=== PATIENT | male | born 1940 | race Caucasian/White ===

== ENCOUNTER → 2016-07-17 | Outpatient (REF) | payer MEDICARE, OTHER ==
[~2016-07-17] MED LIST: CAPT100T2 PO; COUM1TAB17 PO; FISH1000 PO; LIPI20TA PO; LISI40TAB PO; PACE0.05 PO; WARF-18 PO; WARF-23 PO
[2016-07-17 17:14] LABS: INR 2.03
== END ==
LOC: M LABDRAWC 16:18
PROVIDERS: ATTEND Nurse Practitioner Family
DX: I48.0 Paroxysmal atrial fibrillation (principal)

== ENCOUNTER → 2016-08-20 | Outpatient (REF) | payer MEDICARE, OTHER ==
[2016-08-20 12:20] LABS: INR 2.22
== END ==
LOC: M LABDRAWC 11:36
PROVIDERS: ATTEND Nurse Practitioner Family
DX: I48.0 Paroxysmal atrial fibrillation (principal)

== ENCOUNTER → 2016-09-20 | Outpatient (REF) | payer MEDICARE, OTHER ==
[2016-09-20 17:52] LABS: INR 2.42
== END ==
LOC: M LABDRAWC 16:55
PROVIDERS: ATTEND Physician Assistant
DX: I48.0 Paroxysmal atrial fibrillation (principal)

== ENCOUNTER → 2016-10-22 | Outpatient (REF) | payer MEDICARE, OTHER ==
[2016-10-22 17:36] LABS: INR 2.36
== END ==
LOC: M LABDRAWC 17:00
PROVIDERS: ATTEND Nurse Practitioner Family
DX: I48.0 Paroxysmal atrial fibrillation (principal)

== ENCOUNTER → 2016-11-21 | Outpatient (REF) | payer MEDICARE, OTHER ==
[2016-11-21 19:28] LABS: INR 2.73
== END ==
LOC: M LABDRAWC 17:05
PROVIDERS: ATTEND Nurse Practitioner Family
DX: I48.0 Paroxysmal atrial fibrillation (principal)

== ENCOUNTER → 2016-11-30 | Outpatient (REF) | payer MEDICARE, OTHER ==
[2016-11-30 13:41] LABS: PERCENT SATURATION 35.3 % (19.7-37.4)
== END ==
LOC: M LAB REF 12:52
PROVIDERS: ATTEND Internal Medicine Nephrology
DX: D64.9 Anemia, unspecified (principal)

== ENCOUNTER → 2016-12-07 | Outpatient (CLI) | payer MEDICARE, OTHER ==
--- NOTE | 2016-12-07 11:20 | REP ---
Chest two views HISTORY: Atrial fibrillation Comparison: 08/29/2015 The lungs are clear. The heart is upper limits of normal in size. The pulmonary vasculature is normal in appearance. Degenerative change is present in the thoracic spine. A cardiac pacemaker is present. IMPRESSION: No acute disease.
[2016-12-07 18:12] LABS: ALBUMIN 3.4 GM/DL (3.2-5.2); ALBUMIN/GLOBULIN RATIO 0.76 (1.00-1.93); BILIRUBIN,DIRECT 0.2 MG/DL (0.0-0.2); BILIRUBIN,TOTAL 0.6 MG/DL (0.2-1.0); TOTAL PROTEIN 7.9 GM/DL (6.4-8.2)
== END ==
LOC: M CLY 10:19
PROVIDERS: ATTEND Physician Assistant
DX: I48.0 Paroxysmal atrial fibrillation (principal)
CPT/HCPCS: 36415; 71020; 80076; 81002; 84443; G0463

== ENCOUNTER → 2016-12-24 | Outpatient (REF) | payer MEDICARE, OTHER ==
[2016-12-24 18:19] LABS: INR 2.86
== END ==
LOC: M LABDRAWC 17:09
PROVIDERS: ATTEND Physician Assistant
DX: I48.0 Paroxysmal atrial fibrillation (principal)

== ENCOUNTER → 2017-01-24 | Outpatient (REF) | payer MEDICARE, OTHER ==
[2017-01-24 11:54] LABS: INR 2.15
== END ==
LOC: M LABDRAWC 10:57
PROVIDERS: ATTEND Nurse Practitioner Family
DX: I48.0 Paroxysmal atrial fibrillation (principal)

== ENCOUNTER → 2017-02-22 | Outpatient (REF) | payer MEDICARE, OTHER ==
[2017-02-22 18:48] LABS: INR 2.4
== END ==
LOC: M LAB REF 17:22
PROVIDERS: ATTEND Nurse Practitioner Family
DX: I48.0 Paroxysmal atrial fibrillation (principal)

== ENCOUNTER → 2017-03-25 | Outpatient (REF) | payer MEDICARE, OTHER ==
[2017-03-25 18:12] LABS: INR 2.47
== END ==
LOC: M LABDRAWC 16:42
PROVIDERS: ATTEND Physician Assistant
DX: I48.2 Chronic atrial fibrillation (principal)

== ENCOUNTER → 2017-04-26 | Outpatient (REF) | payer MEDICARE, OTHER ==
[2017-04-26 17:48] LABS: INR 2.93
== END ==
LOC: M LAB REF 16:07
PROVIDERS: ATTEND Nurse Practitioner Family
DX: I48.2 Chronic atrial fibrillation (principal)

== ENCOUNTER → 2017-05-28 | Outpatient (REF) | payer MEDICARE, OTHER ==
[2017-05-28 18:32] LABS: INR 2.76
== END ==
LOC: M LAB REF 16:19
PROVIDERS: ATTEND Physician Assistant
DX: I48.2 Chronic atrial fibrillation (principal)

== ENCOUNTER → 2017-07-02 | Outpatient (REF) | payer MEDICARE, OTHER ==
[2017-07-02 16:40] LABS: INR 2.1
== END ==
LOC: M LABDRAWC 16:14
PROVIDERS: ATTEND Physician Assistant
DX: I48.2 Chronic atrial fibrillation (principal)

== ENCOUNTER → 2017-08-05 | Outpatient (REF) | payer MEDICARE, OTHER ==
[2017-08-05 18:14] LABS: INR 2.56; PROTHROMBIN TIME 28.6 SECONDS (12.4-14.5)
== END ==
LOC: M LAB REF 16:56
DX: I48.0 Paroxysmal atrial fibrillation (principal)
CPT/HCPCS: 85610

== ENCOUNTER → 2017-09-04 | Outpatient (REF) | payer MEDICARE, OTHER ==
[2017-09-04 17:28] LABS: INR 2.74; PROTHROMBIN TIME 30.2 SECONDS (12.4-14.5)
== END ==
LOC: M LABDRAWC 16:30
DX: I48.0 Paroxysmal atrial fibrillation (principal)
CPT/HCPCS: 85610

== ENCOUNTER → 2017-10-08 | Outpatient (REF) | payer MEDICARE, OTHER ==
[2017-10-08 18:31] LABS: INR 1.98; PROTHROMBIN TIME 23.2 SECONDS (12.4-14.5)
== END ==
LOC: M LABDRAWC 16:19
DX: Z51.81 Encounter for therapeutic drug level monitoring (principal); Z79.01 Long term (current) use of anticoagulants; I48.0 Paroxysmal atrial fibrillation
CPT/HCPCS: 85610

== ENCOUNTER → 2017-10-24 | Outpatient (CLI) | payer MEDICARE, OTHER | LOC: M CLY 13:09 | DX: I48.0 Paroxysmal atrial fibrillation (principal) | CPT/HCPCS: 71046 ==

== ENCOUNTER → 2017-10-29 | Outpatient (REF) | payer MEDICARE, OTHER ==
[2017-10-29 16:55] LABS: INR 2.21; PROTHROMBIN TIME 25.4 SECONDS (12.4-14.5)
[2017-10-29 17:56] LABS: ALBUMIN 3.2 GM/DL (3.2-5.2); ALBUMIN/GLOBULIN RATIO 0.73 (1.00-1.93); ALKALINE PHOSPHATASE 111 U/L (45-117); ALT/SGPT 23 U/L (12-78); ANION GAP 5 MEQ/L (8-16); AST/SGOT 25 U/L (7-37); BILIRUBIN,TOTAL 0.6 MG/DL (0.2-1.0); BLOOD UREA NITROGEN 27 MG/DL (7-18); CALCIUM LEVEL 9.1 MG/DL (8.8-10.2); CARBON DIOXIDE LEVEL 28 MEQ/L (21-32); CHLORIDE LEVEL 107 MEQ/L (98-107); CHOLESTEROL LEVEL 105 MG/DL (<200); CHOLESTEROL RISK RATIO 2.142 (<5); CREATININE FOR GFR 2.11 MG/DL (0.70-1.30); GLOMERULAR FILTRATION RATE 32.5 (>42); GLUCOSE, FASTING 94 MG/DL (70-100); HDL CHOLESTEROL 49 MG/DL (>40); LDL CHOLESTEROL 40.6 MG/DL (<100); MAGNESIUM LEVEL 1.5 MG/DL (1.8-2.4); NON-HDL-C 56 MG/DL; POTASSIUM SERUM 4.5 MEQ/L (3.5-5.1); SODIUM LEVEL 140 MEQ/L (136-145); TOTAL PROTEIN 7.6 GM/DL (6.4-8.2); TRIGLYCERIDES LEVEL 77 MG/DL (<150)
== END ==
LOC: M LABDRAWC 16:28
DX: I50.42 Chronic combined systolic (congestive) and diastolic (congestive) heart failure (principal); E78.00 Pure hypercholesterolemia, unspecified; I25.5 Ischemic cardiomyopathy
CPT/HCPCS: 83735

== ENCOUNTER → 2017-11-26 | Outpatient (REF) | payer MEDICARE, OTHER ==
[2017-11-26 18:47] LABS: INR 2.04; PROTHROMBIN TIME 23.7 SECONDS (12.4-14.5)
== END ==
LOC: M LABDRAWC 16:22
DX: I48.0 Paroxysmal atrial fibrillation (principal)
CPT/HCPCS: 85610

== ENCOUNTER → 2018-01-06 | Outpatient (REF) | payer MEDICARE, OTHER ==
[2018-01-06 17:24] LABS: INR 2.87; PROTHROMBIN TIME 30.7 SECONDS (12.1-14.4)
== END ==
LOC: M LABDRAWC 16:25
DX: I48.0 Paroxysmal atrial fibrillation (principal); Z51.81 Encounter for therapeutic drug level monitoring; Z79.01 Long term (current) use of anticoagulants
CPT/HCPCS: 85610

== ENCOUNTER → 2018-01-24 | Outpatient (REF) | payer MEDICARE, OTHER ==
[2018-01-24 16:54] LABS: INR 2.22
== END ==
LOC: M LABDRAWC 16:04
DX: I48.0 Paroxysmal atrial fibrillation (principal)
CPT/HCPCS: 85610